=== PATIENT | male | born 1955 | race Caucasian/White ===

== ENCOUNTER 2023-06-16 23:51 | Emergency (ER) | payer MEDICAID ==
[~2023-06-16] VITALS: Ht 172.7 cm; Wt 74.8 kg
[2023-06-17 00:05] VITALS: BP 104/72; PULSE 60; RESP 18; TEMP 97.9; O2SAT 100
[2023-06-17 06:05] VITALS: BP 104/72; PULSE 60; RESP 18; TEMP 97.9; O2SAT 100
== END 2023-06-17 06:08 | disposition home or self-care (01) ==
LOC: MED 23:51
DX: F10.129 Alcohol abuse with intoxication, unspecified (principal); Y90.9 Presence of alcohol in blood, level not specified
CPT/HCPCS: 99283